=== PATIENT | male | born 1930 | race Caucasian/White ===

== ENCOUNTER 2017-04-26 23:13 | Emergency (ER) | payer MEDICARE ==
[~2017-04-26] VITALS: Ht 172.7 cm; Wt 81.7 kg
[~2017-04-26 23:13] MED LIST: ALLO100 PO; AMLO10 PO; AMLO5 PO; ASPI325 PO; Aspirin325 MG PO; CHOL10002; CYAN1000 PO; FENO54 PO; FURO80; GLIM2 PO; HYDCHL25 PO; HYDMOR2 PO; HYDRA25 PO; INS70/30PN SC; MULVITMIND PO; Magnesium Oxid500 MG PO; OLME20 PO; OLME40; OLMESARTAN-HCT1 EAC2 PO; POTASSIUM GLUC500 MG PO; Prednisone20 MG PO; SIMV10 PO; SIMV40 PO; SYNTHROID25 MCG PO; TOCO400 PO
[2017-04-26] MEDS ORDERED: SIMV10 PO (23:35)
[2017-04-26] MEDS ORDERED: ASPI325 PO (23:36)
[2017-04-26] MEDS ORDERED: OLME5TAB PO (23:36)
[2017-04-26] MEDS ORDERED: BILBERRY PO (23:37)
[2017-04-26] MEDS ORDERED: TAMS.4ER PO (23:37)
[2017-04-27 00:20] LABS: BASOPHILS ABSOLUTE AUTO 0.01 K/mm3 (0.00-0.23); BASOPHILS PERCENT AUTO 0 % (0-2); EOSINOPHILS ABSOLUTE AUTO 0.14 K/mm3 (0.00-0.68); EOSINOPHILS PERCENT AUTO 2 % (0-6); Hematocrit 35.4 % (37.0-53.0); Hemoglobin 12.4 g/dL (13.5-17.5); IMMATURE GRAN ABSOLUTE AUTO 0.03 K/mm3 (0.00-0.10); IMMATURE GRAN PERCENT AUTO 0 % (0-1); LYMPHOCYTES ABSOLUTE AUTO 2.26 K/mm3 (0.84-5.20); LYMPHOCYTES PERCENT AUTO 34 % (21-46); MONOCYTES ABSOLUTE AUTO 0.42 K/mm3 (0.16-1.47); MONOCYTES PERCENT AUTO 6 % (4-13); Mean Corpuscular HGB 30.5 pg (26.0-34.0); Mean Corpuscular Volume 87 fL (80-100); Mean Platelet Volume 10.7 fL (9.1-12.4); NEUTROPHILS ABSOLUTE AUTO 3.82 K/mm3 (1.96-9.15); NEUTROPHILS PERCENT AUTO 57 % (41-73); Platelet Count 128 K/mm3 (150-400); RDW Coefficient Variation 14.6 % (11.7-14.2); Red Blood Cell Count 4.07 M/mm3 (4.30-5.90); White Blood Cell Count 6.68 K/mm3 (4.00-11.30)
[2017-04-27 00:40] LABS: Albumin, Blood 3.4 g/dL (3.4-5.0); Bilirubin, Total 0.6 mg/dL (0.1-1.0); Bun/Creatinine Ratio 26.9 (12.0-20.0); Creatinine, Blood 1.67 mg/dL (0.60-1.20); Globulin, Blood 3.4 g/dL (2.2-4.0); Potassium, Blood 3.2 mmol/L (3.5-5.5); Total Protein, Blood 6.8 g/dL (6.4-8.2)
[2017-04-27 02:04] LABS: Source, Urine Clean Catch
[2017-04-27 02:12] LABS: Bilirubin, Urine Neg (Neg); Blood, Urine Neg (Neg); Glucose Qualitative, Urine 2+ (Neg); Ketones, Urine Neg (Neg); Leukocyte Esterase, Urine Neg (Neg); Nitrite, Urine Neg (Neg); Protein, Urine 3+ (Neg); Urobilinogen, Urine NORM (Normal); pH, Urine 6.5 (5.0-8.0)
[2017-04-27 02:17] LABS: Appearance, Urine Clear (Clear); Color, Urine Yellow (P-Yellow)
[2017-04-27 02:18] LABS: Bacteria Mod /hpf; Red Blood Cells, Urine 0-2 /hpf (0-2); Squamous Epithelial Cells Not Seen /hpf (Few); White Blood Cells, Urine 0-2 /hpf (0-5)
[2017-04-27] MEDS ORDERED: Zofran Odt4 MG SL (02:31)
== END 2017-04-27 02:50 | disposition home or self-care (01) ==
LOC: ER 23:13
PROVIDERS: Emergency Medicine
DX: R10.31 Right lower quadrant pain (principal); E11.9 Type 2 diabetes mellitus without complications; Z88.0 Allergy status to penicillin; Z79.4 Long term (current) use of insulin; Z79.899 Other long term (current) drug therapy; Z79.82 Long term (current) use of aspirin
CPT/HCPCS: 36415; 74176; 80053; 81001; 83690; 85025; 87086; 93005; 93010; 96361; 96374; 99284; J2405; J7030

== ENCOUNTER 2017-07-23 08:50 | Emergency (ER) | payer MEDICARE ==
[~2017-07-23] VITALS: Ht 172.7 cm; Wt 81.7 kg
[~2017-07-23 08:50] MED LIST changes: +BILBERRY PO; +OLME5TAB PO; +TAMS.4ER PO; +Zofran Odt4 MG SL
== END 2017-07-23 10:56 | disposition home or self-care (01) ==
LOC: ER 08:50
DX: K59.09 Other constipation (principal); E11.9 Type 2 diabetes mellitus without complications; Z88.0 Allergy status to penicillin; Z79.899 Other long term (current) drug therapy; Z79.82 Long term (current) use of aspirin; Z79.4 Long term (current) use of insulin
CPT/HCPCS: 74018

== ENCOUNTER 2018-04-09 03:44 | Inpatient (IN) | payer MEDICARE ==
[~2018-04-09] VITALS: Ht 180.3 cm; Wt 75.0 kg
[~2018-04-09 03:44] MED LIST changes: -FURO80; +FURO80 PO; +NOVOLIN 70100 UNIT/2 SC
[2018-04-09 04:04] LABS: BASOPHILS ABSOLUTE AUTO 0.02 K/mm3 (0.00-0.23); BASOPHILS PERCENT AUTO 0 % (0-2); EOSINOPHILS ABSOLUTE AUTO 0.04 K/mm3 (0.00-0.68); EOSINOPHILS PERCENT AUTO 0 % (0-6); Hematocrit 37.9 % (37.0-53.0); Hemoglobin 13.2 g/dL (13.5-17.5); IMMATURE GRAN ABSOLUTE AUTO 0.03 K/mm3 (0.00-0.10); IMMATURE GRAN PERCENT AUTO 0 % (0-1); LYMPHOCYTES ABSOLUTE AUTO 1.89 K/mm3 (0.84-5.20); LYMPHOCYTES PERCENT AUTO 21 % (21-46); MONOCYTES ABSOLUTE AUTO 0.49 K/mm3 (0.16-1.47); MONOCYTES PERCENT AUTO 5 % (4-13); Mean Corpuscular HGB 30.7 pg (26.0-34.0); Mean Corpuscular HGB Conc 34.8 g/dL (31.5-36.5); Mean Corpuscular Volume 88 fL (80-100); Mean Platelet Volume 10.3 fL (9.1-12.4); NEUTROPHILS ABSOLUTE AUTO 6.76 K/mm3 (1.96-9.15); NEUTROPHILS PERCENT AUTO 73 % (41-73); Platelet Count 156 K/mm3 (150-400); RDW Coefficient Variation 13.7 % (11.7-14.2); RDW Standard Deviation 43.8 fL (35.1-46.3); White Blood Cell Count 9.23 K/mm3 (4.00-11.30)
[2018-04-09 04:16] LABS: Albumin, Blood 3.4 g/dL (3.4-5.0); Albumin/Globulin Ratio 1.1 (0.8-1.8); Bilirubin, Total 0.8 mg/dL (0.1-1.0); Bun/Creatinine Ratio 20.2 (12.0-20.0); Calcium, Blood 9.3 mg/dL (8.5-10.1); Creatinine, Blood 1.68 mg/dL (0.60-1.20); Potassium, Blood 3.3 mmol/L (3.5-5.5); Total Protein, Blood 6.4 g/dL (6.4-8.2)
[2018-04-09 04:56] LABS: Source, Urine Clean Catch
[2018-04-09 05:24] LABS: Bilirubin, Urine Neg (Neg); Blood, Urine 2+ (Neg); Glucose Qualitative, Urine 2+ (Neg); Ketones, Urine Neg (Neg); Leukocyte Esterase, Urine Neg (Neg); Nitrite, Urine Neg (Neg); Protein, Urine 4+ (Neg); Urobilinogen, Urine NORM (Normal)
[2018-04-09 05:27] LABS: Appearance, Urine Clear (Clear); Color, Urine Yellow (P-Yellow)
[2018-04-09 05:28] LABS: Bacteria Not Seen /hpf; Red Blood Cells, Urine 0-2 /hpf (0-2); Squamous Epithelial Cells Few /hpf (Few); White Blood Cells, Urine Not Seen /hpf (0-5)
--- NOTE | 2018-04-09 10:44 | NUR ---
pt arrived to room 9 from er dept pt is 87 yr old male being admitted for toxic met encephalopathy pt has had dec loc and past day pain to his neck and head unsure if he has been sensititve to lights when we moved the pt from the gurney to the bed pt grabbed his head with both hands and cried out any movement also from side to side also caused pain in the pt pt is tired fell back to sleep family at bedside stated he ate yesterday afternoon echo at bedside
[2018-04-09] MEDS ORDERED: ASCO500 PO (11:04)
--- NOTE | 2018-04-09 11:04 | NUR ---
DR VELASQUEZ CALLED RE CRITICAL TROP LEVEL IMPROVED FROM THE FIRST LEVEL [phone]
[2018-04-09] MEDS ORDERED: Benicar Hct 401 EAC1 PO (11:06)
[2018-04-09] MEDS ORDERED: ASPI81CH PO (11:07)
[2018-04-09] MEDS ORDERED: Biotin1 MG PO (11:08)
[2018-04-09] MEDS ORDERED: FINA5 PO (11:15)
[2018-04-09] MEDS ORDERED: FISH OIL 1,0001 EAC1 PO (11:16)
[2018-04-09] MEDS ORDERED: GABA100 PO (11:17)
--- NOTE | 2018-04-09 11:49 | NUR ---
ECHOCARDIOGRAM COMPLETED
--- NOTE | 2018-04-09 12:41 | NUR ---
PT SLEEPING FAMILY AT BEDSIDE STATED EARLIER HE DID WAKE BREIFLY LOOKED AROUND THE ROOM WONDERED WERE HE WAS THEN WENT BACK TO SLEEP FAMILY STATED THAT HIS CONFUSION STARTED YESTERDAY ANTONIO AROUND 5 PM ALONG WITH APHASIA ALSO HAD A FALL PRIOR TO THE FALL PT DID NOT HAVE HEAD OR NECK PAIN PT DID TAKE PILLS EARLIER WITH WATER NO CHOKING OR SWALLOWING DIFFICULTIES
--- NOTE | 2018-04-09 15:06 | NUR ---
PT RESPONDS TO SOME QUESTIONS. OFTEN NOT CORRECT ANSWERS. SPEAKING MORE CLEARLY THAN EARLIER IN DAY PER . PT DID STAND TO URINATE. LEAN TO HIS LEFT SOME. UNABLE TO FOLLOW SOME COMMANDS. UNABLE TO FOLLOW COMMAND TO TOUCH FINGER TO NOSE. BED IN LOW POSITION,,CALL LITE IN REACH, BED ALARM ON FOR SAFETY
--- NOTE | 2018-04-09 15:09 | NUR ---
UPDATED DR VELASQUEZ ON PT LACK OF FOLLOWING COMMANDS. LOW K+. ORDERS PENDING.
--- NOTE | 2018-04-09 17:39 | NUR ---
PT QUIET. HEARS THROUGH LEFT EAR. AT BEDSIDE. ANSWERS WORD SALAD. STATES WORDS ARE MORE CLEAR, BUT ARE NOT CORRECT WORDS FOR QUESTIONS ASKED. PT DENIES PAIN. HOWEVER OFTEN HOLD HEAD. FAMILY REPORTS TO DR RAYMUNDO RAMOS STARTED RECENTLY, NO OTHER CONCERNS AT THIS TIME. BED IN LOW POSITION, CALL LITE IN REACH,BED ALARM ON FOR SAFETY
--- NOTE | 2018-04-09 21:13 | NUR ---
UPDATE: DR MATOS NOTIFIED OF PATIENT'S ELEVATED BLOOD PRESSURES. SHE STATED SHE WOULD REVEIW HIS CHART AND PUT IN ORDERS IF SHE FELT IT WAS NEEDED.
[2018-04-10 04:15] LABS: BASOPHILS ABSOLUTE AUTO 0.01 K/mm3 (0.00-0.23); BASOPHILS PERCENT AUTO 0 % (0-2); EOSINOPHILS ABSOLUTE AUTO 0.02 K/mm3 (0.00-0.68); EOSINOPHILS PERCENT AUTO 0 % (0-6); Hemoglobin 12.2 g/dL (13.5-17.5); IMMATURE GRAN ABSOLUTE AUTO 0.02 K/mm3 (0.00-0.10); IMMATURE GRAN PERCENT AUTO 0 % (0-1); LYMPHOCYTES ABSOLUTE AUTO 2.04 K/mm3 (0.84-5.20); LYMPHOCYTES PERCENT AUTO 32 % (21-46); MONOCYTES ABSOLUTE AUTO 0.44 K/mm3 (0.16-1.47); MONOCYTES PERCENT AUTO 7 % (4-13); Mean Corpuscular HGB 30.7 pg (26.0-34.0); Mean Corpuscular HGB Conc 34.9 g/dL (31.5-36.5); Mean Corpuscular Volume 88 fL (80-100); Mean Platelet Volume 10.2 fL (9.1-12.4); NEUTROPHILS ABSOLUTE AUTO 3.89 K/mm3 (1.96-9.15); NEUTROPHILS PERCENT AUTO 61 % (41-73); Platelet Count 114 K/mm3 (150-400); RDW Coefficient Variation 13.4 % (11.7-14.2); RDW Standard Deviation 43.4 fL (35.1-46.3); Red Blood Cell Count 3.97 M/mm3 (4.30-5.90); White Blood Cell Count 6.42 K/mm3 (4.00-11.30)
[2018-04-10 04:36] LABS: Albumin, Blood 2.8 g/dL (3.4-5.0); Albumin/Globulin Ratio 0.9 (0.8-1.8); Bilirubin, Total 0.9 mg/dL (0.1-1.0); Bun/Creatinine Ratio 16.7 (12.0-20.0); Calcium, Blood 8.5 mg/dL (8.5-10.1); Creatinine, Blood 1.5 mg/dL (0.60-1.20); Potassium, Blood 3.4 mmol/L (3.5-5.5); Total Protein, Blood 5.8 g/dL (6.4-8.2)
[2018-04-10 05:02] LABS: Troponin I 0.635 ng/mL (0.000-0.040)
--- NOTE | 2018-04-10 07:52 | NUR ---
SHIFT SUMMARY PATIENT ALERT BUT CONFUSED AND FORGETFUL. PATIENT ONLY ABLE TO STATE HIS FIRST NAME. PATIENT UNABLE TO STATE LAST NAME OR DATE OF AT THIS TIME. PATIENT COOPERATIVE BUT NEEDS DIRECTION. PATIENT ABLE TO RESPOND "YES" AND "NO." PATIENT'S DAUGHTER STAYED THE NIGHT IN THE ROOM. PATIENT ABLE TO STAND AT THE SIDE OF THE BED AND VOID USING THE URINAL WITH 2 PERSON ASSIST. BED ALARM ON FOR SAFETY. REPORT GIVEN TO ONCOMING RN.
[2018-04-10 08:58] LABS: PCO2 Arterial 33.9 mmHg (35-45); PO2 Arterial 71.6 mmHg (80-100)
--- NOTE | 2018-04-10 16:39 | NUR ---
Initial Visit: Pt admitted for concerns of stroke, presented to ER with word aliya, difficulty expressing himself. Spoke with in room. Pt is laying in bed, he smiles but is not saying anything. Order of events leading up to admission is not clear, is telling the story out of chronological order at time and adding things in the story that happened months earlier. She did relate that he had a fall in the recent days and also that he was trying to communicate with her and she describes word salad symptom. She reports that prior to this, he was full functioning with no confusion and performing all ADLs. Review of care plan and medications. Reviewed heparin and increased troponin. She voices concern over not knowing what will happen next in his care. She reports that she has seen him hold his head, as if it hurts. At this time, he does not appear to be in any distress. Spoke with nurse, Jack. He reports that the patient's may not be the best source of information: He reports that she may be forgetful. He suggests following up with the daughter. Daughter spent the night in the patient's room last night. Will follow up with patient and family in coming days. Will need to discuss advanced care planning and come up with strategies to keep pt safe at home if his dementia is worsening and he has a new baseline. Pt and live independently.
--- NOTE | 2018-04-10 19:50 | NUR ---
END OF SHIFT PT IS STILL CONFUSED WITH TIMES OF CLEARING, VSS, PT IS IN NO PAIN
[2018-04-11 03:46] LABS: BASOPHILS ABSOLUTE AUTO 0.01 K/mm3 (0.00-0.23); BASOPHILS PERCENT AUTO 0 % (0-2); EOSINOPHILS ABSOLUTE AUTO 0.03 K/mm3 (0.00-0.68); EOSINOPHILS PERCENT AUTO 1 % (0-6); Hematocrit 32.1 % (37.0-53.0); Hemoglobin 11.2 g/dL (13.5-17.5); IMMATURE GRAN ABSOLUTE AUTO 0.02 K/mm3 (0.00-0.10); IMMATURE GRAN PERCENT AUTO 0 % (0-1); LYMPHOCYTES ABSOLUTE AUTO 2.02 K/mm3 (0.84-5.20); LYMPHOCYTES PERCENT AUTO 35 % (21-46); MONOCYTES ABSOLUTE AUTO 0.39 K/mm3 (0.16-1.47); MONOCYTES PERCENT AUTO 7 % (4-13); Mean Corpuscular HGB 30.5 pg (26.0-34.0); Mean Corpuscular HGB Conc 34.9 g/dL (31.5-36.5); Mean Corpuscular Volume 88 fL (80-100); Mean Platelet Volume 10.5 fL (9.1-12.4); NEUTROPHILS ABSOLUTE AUTO 3.31 K/mm3 (1.96-9.15); NEUTROPHILS PERCENT AUTO 57 % (41-73); Platelet Count 112 K/mm3 (150-400); RDW Coefficient Variation 13.4 % (11.7-14.2); RDW Standard Deviation 43.3 fL (35.1-46.3); Red Blood Cell Count 3.67 M/mm3 (4.30-5.90); White Blood Cell Count 5.78 K/mm3 (4.00-11.30)
[2018-04-11 04:06] LABS: Bun/Creatinine Ratio 22.8 (12.0-20.0); Creatinine, Blood 1.27 mg/dL (0.60-1.20); Potassium, Blood 3.2 mmol/L (3.5-5.5)
--- NOTE | 2018-04-11 07:24 | NUR ---
SHIFT SUMMARY PATIENT CONTINUES TO BE CONFUSED AND REQUIRES FREQUENT REORIENTATION. PATIENT CONTINUES TO ONLY RESPOND WITH YES/NO ANSWERS. PATIENT DID SAY SEVERAL SHORT SENTENCES THROUGHOUT THE NIGHT. PATIENT'S DAUGHTER STAYED THE NIGHT AT THE BEDSIDE. PATIENT STRAIGHT CATHED X 1 PER ORDERS. PATIENT DOES APPEAR TO BE MOVING HIS RIGHT ARM MORE TONIGHT THAN HE WAS LAST NIGHT. HOWEVER, PATIENT CONTINUES TO NOT SAY MUCH, EVEN WHEN PROMPTED. FLUIDS RUNNING PER ORDERS. REPORT GIVEN TO ONCOMING RN.
--- NOTE | 2018-04-11 16:23 | NUR ---
Late entry for service provided at 11am. Jacoby was alert and friendly. He appeared free of discomfort and well supported. He responded favorably to social attention, humor and encouragement. His verbal contribution was legible, and cogent but abbreviated and non-spontaneous. No initiation observed. I provided supportive presence, reassurance and hand holding. Jacoby showed clear evidence of consolability and positive emotionality. Will follow up.
--- NOTE | 2018-04-11 18:46 | NUR ---
END OF SHIFT PT HAS HAD NO CHANGES TO THE ASSESSMENT, VSS, PT HAS BEEN ABLE TO AMBULATE TO THE BED FOR THE BED SIDE TABLE, PT BP IS RUNNING HIGH,
--- NOTE | 2018-04-12 04:16 | NUR ---
SHIFT SUMMARY PT ALERT, ORIENTED TO SELF AND FAMILY. PT SLOW TO RESPOND, FORGETFUL AT TIMES, REQUIRING REPETENCE OF QUESTIONS. PT'S DAUGHTER AT BEDSIDE T/O SHIFT. PT LUNG SOUNDS CLEAR, DIM IN BASES. SPO2 > 92% ON RA. BP ELEVATED, OTHERWISE VSS. PT C/O PAINFUL/BURNING URINATION. CALL TO MD Olivia/ ORDER GRANTED TO OBTAIN A UA. WILL COLLECT SPECIMEN WHEN PT ABLE TO NEXT VOID. WILL CONTINUE TO MONITOR AND PROVIDE CARE UNTIL REPORT OFF TO DAY SHIFT RN.
[2018-04-12 04:40] LABS: Bun/Creatinine Ratio 19.3 (12.0-20.0); Calcium, Blood 7.9 mg/dL (8.5-10.1); Creatinine, Blood 1.4 mg/dL (0.60-1.20); Potassium, Blood 3.5 mmol/L (3.5-5.5)
[2018-04-12 05:26] LABS: Source, Urine Clean Catch
[2018-04-12 05:40] LABS: Appearance, Urine Clear (Clear); Bilirubin, Urine Neg (Neg); Blood, Urine 1+ (Neg); Color, Urine Yellow (P-Yellow); Glucose Qualitative, Urine 3+ (Neg); Ketones, Urine Neg (Neg); Leukocyte Esterase, Urine Neg (Neg); Nitrite, Urine Neg (Neg); Protein, Urine 4+ (Neg); Specific Gravity, Urine 1.015 (1.003-1.022); Urobilinogen, Urine 2+ (Normal); pH, Urine 6.5 (5.0-8.0)
[2018-04-12 05:51] LABS: Bacteria Not Seen /hpf; Red Blood Cells, Urine 0-2 /hpf (0-2); Squamous Epithelial Cells Few /hpf (Few); White Blood Cells, Urine 0-2 /hpf (0-5)
[2018-04-12 05:52] LABS: Granular Casts Rare /lpf (0)
--- NOTE | 2018-04-12 15:36 | NUR ---
Jacoby was alert, warm and conversant. He appeared much improved compared to yesterdays encounter. He was in good spirits, grateful for the care he recieved and happy to be returning home. I offered words of reassurance and encouragement.
== END 2018-04-12 14:49 | disposition home or self-care (01) | DRG 92 ==
LOC: ER 03:44 → PCU 03:45 → ER 04:50 → MEDS 04:50 → PCU 10:35
PROVIDERS: Emergency Medicine; Internal Medicine; ADMIT Hospitalist
DX: G92 Toxic encephalopathy (principal); F03.91 Unspecified dementia, unspecified severity, with behavioral disturbance; F05 Delirium due to known physiological condition; G45.9 Transient cerebral ischemic attack, unspecified; I12.9 Hypertensive chronic kidney disease with stage 1 through stage 4 chronic kidney disease, or unspecified chronic kidney disease; E11.22 Type 2 diabetes mellitus with diabetic chronic kidney disease; N18.3 Chronic kidney disease, stage 3 (moderate); E87.6 Hypokalemia; T42.6X5A Adverse effect of other antiepileptic and sedative-hypnotic drugs, initial encounter; M79.2 Neuralgia and neuritis, unspecified; R47.81 Slurred speech; Z79.4 Long term (current) use of insulin; Z87.891 Personal history of nicotine dependence; Z66 Do not resuscitate; R79.89 Other specified abnormal findings of blood chemistry
CPT/HCPCS: 36415; 36600; 51701; 70450; 70551; 71046; 74176; 80048; 80053; 81001; 82803; 82947; 83690; 84145; 84484; 85025; 92526; 92610; 93005; 93010; 93306; 93880; 96361; 96365; 97110; 97112; 97116; 97162; 97166; 97530; 97535; 99285-25; J0360; J0713; J1644; J3370; J3480; J7030

== ENCOUNTER → 2018-05-16 | Outpatient (CLI) | payer MEDICARE ==
[~2018-05-16] MED LIST changes: +ASCO500 PO; +ASPI81CH PO; +Benicar Hct 401 EAC1 PO; +Biotin1 MG PO; +FINA5 PO; +FISH OIL 1,0001 EAC1 PO; +GABA100 PO
== END | disposition home or self-care (01) ==
LOC: LAB SHORT 07:51 → PLD 07:51
DX: D48.5 Neoplasm of uncertain behavior of skin (principal)
CPT/HCPCS: 88304

== ENCOUNTER → 2018-12-06 | Outpatient (CLI) | payer MEDICARE ==
[~2018-12-06] MED LIST changes: +ACET500 PO; +Aspirin EC81 MG PO; +B-12500 MC1 PO; +CHOL10002 PO; +MAGNESIUM/CALCIUM PO; +Multiple Vitam1 EAC1; +Novolog100 UNIT/1; +Simvastatin40 MG PO
== END | disposition home or self-care (01) ==
LOC: LAB SHORT 14:21 → PLD 14:21
DX: D48.5 Neoplasm of uncertain behavior of skin (principal)
CPT/HCPCS: 88305

== ENCOUNTER 2019-02-13 09:30 | Inpatient (IN) | payer MEDICARE ==
[~2019-02-13] VITALS: Ht 172.7 cm; Wt 68.0 kg
[2019-02-13] MEDS ORDERED: Lipitor20 MG PO (10:05)
[2019-02-13 10:42] LABS: BASOPHILS ABSOLUTE AUTO 0.02 K/mm3 (0.00-0.23); BASOPHILS PERCENT AUTO 0 % (0-2); EOSINOPHILS ABSOLUTE AUTO 0.17 K/mm3 (0.00-0.68); EOSINOPHILS PERCENT AUTO 3 % (0-6); Hematocrit 32.6 % (37.0-53.0); Hemoglobin 11.1 g/dL (13.5-17.5); IMMATURE GRAN ABSOLUTE AUTO 0.02 K/mm3 (0.00-0.10); IMMATURE GRAN PERCENT AUTO 0 % (0-1); LYMPHOCYTES PERCENT AUTO 26 % (21-46); MONOCYTES ABSOLUTE AUTO 0.46 K/mm3 (0.16-1.47); MONOCYTES PERCENT AUTO 7 % (4-13); Mean Corpuscular HGB 30.9 pg (26.0-34.0); Mean Corpuscular Volume 91 fL (80-100); Mean Platelet Volume 9.4 fL (9.1-12.4); NEUTROPHILS ABSOLUTE AUTO 4.46 K/mm3 (1.96-9.15); NEUTROPHILS PERCENT AUTO 64 % (41-73); Platelet Count 163 K/mm3 (150-400); RDW Coefficient Variation 14.6 % (11.7-14.2); RDW Standard Deviation 48.6 fL (35.1-46.3); Red Blood Cell Count 3.59 M/mm3 (4.30-5.90); White Blood Cell Count 6.93 K/mm3 (4.00-11.30)
[2019-02-13] MEDS ORDERED: ESOM20 PO (10:51)
[2019-02-13] MEDS ORDERED: FINA5 PO (10:51)
[2019-02-13] MEDS ORDERED: FUROSEMIDE40 MG PO (10:52)
[2019-02-13] MEDS ORDERED: METOPROLOL SUCC25 MG PO (10:53)
[2019-02-13 11:04] LABS: Bilirubin, Total 0.6 mg/dL (0.1-1.0); Bun/Creatinine Ratio 13.5 (12.0-20.0); Calcium, Blood 9.2 mg/dL (8.5-10.1); Creatinine, Blood 1.71 mg/dL (0.60-1.20); Globulin, Blood 2.9 g/dL (2.2-4.0); Potassium, Blood 3.9 mmol/L (3.5-5.5); Total Protein, Blood 5.9 g/dL (6.4-8.2)
[2019-02-13 11:15] LABS: Troponin I 0.501 ng/mL (0.000-0.040)
[2019-02-13] MEDS ORDERED: LOSARTAN POTASS25 M2 PO (11:44)
[2019-02-13] MEDS ORDERED: POTA10T PO (11:45)
[2019-02-13] MEDS ORDERED: HYDRA25 PO (11:45)
[2019-02-13] MEDS ORDERED: NOVOLOG FL100 UNIT/1 SC (11:46)
[2019-02-13 13:50] LABS: International Normalized Ratio 1.02; Prothrombin Time Results 10.8 Sec (9.7-11.5)
--- NOTE | 2019-02-13 19:15 | NUR ---
TR band site assessed, removed remaining 3cc air pressure.
--- NOTE | 2019-02-13 19:30 | NUR ---
recvd bedside report from previous shift JOEL Ruiz, pt a/o x 4, pleasant/cooperative, in room. pt being [facility] transferred to [facility] within the hour.
--- NOTE | 2019-02-13 19:39 | NUR ---
PT SIGNED CONSENT FORM FOR TRANSPORT TO [facility] FOR FURTHER TX. PTS IS AT THE BEDSIDE. TR BAND DEFLATING PROCESS COMPLETED AT THIS TIME, WILL BE LEFTT IN PLACE FOR 1 HR, NO ACTIVE BLEEDING NOTED, BLOOD AT SITE WAS PRESENT UP ADMISSION. RIGHT GROIN SITE HAS A MIKE DRSG IN PLACE, SMALL AMOUNT OF DRAINAGE NOTED AND TRACED, HAS NOT EXPANDED BEYOND BORDERS, NO SIGNS OF HEMATOMA PRESENT. TRANSPORT IS ON THIER WAY, [facility], CALL LIGHT IN REACH.
--- NOTE | 2019-02-13 20:05 | NUR ---
provided pt's with directions to [facility] and room number there
--- NOTE | 2019-02-13 20:19 | NUR ---
REPORT CALLED TO [facility] AT THIS TIME. CURRENTLY AWAITING TRANSPORT. REPORT HAS BEEN GIVEN TO ROBERT MALDONADO. PT'S IS AT THE BEDSIDE. VSS, RESP UNLABORED, CALL L DARIN IN REACH
--- NOTE | 2019-02-13 20:45 | NUR ---
removed TR band WNL, no bleeding, no hematoma pressent to elbow. applied tegaderm to site after cleaning around site with chlorprep
--- NOTE | 2019-02-13 20:52 | NUR ---
[facility] here for transport.
== END 2019-02-13 21:01 | disposition short-term general hospital (02) | DRG 282 ==
LOC: ER 09:30 → PCU 11:49
PROVIDERS: Emergency Medicine; Internal Medicine Cardiovascular Disease; ADMIT Internal Medicine
PROC: B2111ZZ Fluoroscopy of Multiple Coronary Arteries using Low Osmolar Contrast (ICD-10-PCS; principal; 2019-02-13)
PROC: B41J1ZZ Fluoroscopy of Other Lower Arteries using Low Osmolar Contrast (ICD-10-PCS; 2019-02-13)
DX: I21.4 Non-ST elevation (NSTEMI) myocardial infarction (principal); I12.9 Hypertensive chronic kidney disease with stage 1 through stage 4 chronic kidney disease, or unspecified chronic kidney disease; M10.9 Gout, unspecified; E11.22 Type 2 diabetes mellitus with diabetic chronic kidney disease; Z96.659 Presence of unspecified artificial knee joint; E87.5 Hyperkalemia; I35.0 Nonrheumatic aortic (valve) stenosis; Z66 Do not resuscitate; Z87.891 Personal history of nicotine dependence
CPT/HCPCS: 36415; 71045; 80053; 82947; 83690; 83735; 83880; 84484; 85025; 85610; 86850; 86900; 86901; 93005; 93010; 93454; 99152; 99153; 99285-25; A9270; C1769; C1894; J0360; J1644; J2250; J3010; J7030; Q9967